=== PATIENT | male | born 1965 | race Caucasian/White ===

== ENCOUNTER → 2021-01-04 14:44 | Outpatient (CLI) | payer OTHER, SELFPAY ==
[2021-01-04 15:12] LABS: Basophils % 0.4 % (0.1-2.0); Eosinophils # 0.3 K/mm3 (0.0-0.4); Eosinophils % 3.9 % (0.1-12.0); Hematocrit 44.8 % (42.0-52.0); Hemoglobin 15.2 g/dL (14.1-18.0); Lymphocytes # 2.8 K/mm3 (0.7-4.5); Lymphocytes % 43.1 % (10-50); Mean Corpuscular HGB Conc 33.9 g/dL (31.8-35.4); Mean Corpuscular Hemoglobin 30.8 pg (27.0-31.2); Mean Corpuscular Volume 90.7 fl (80-94); Mean Platelet Volume 8.1 fl (7.4-10.4); Monocytes # 0.3 K/mm3 (0.1-1.0); Neutrophils # 3.1 K/mm3 (1.8-7.8); Neutrophils % 47.6 % (37.0-80.0); Platelet Count 253 K/mm3 (142-424); Red Blood Count 4.94 M/mm3 (4.60-6.20); Red Cell Distribution Width 13.7 % (11.5-17.5); White Blood Count 6.5 K/mm3 (4.8-10.8)
[2021-01-04 15:14] LABS: Alanine Aminotransferase 34 U/L (12-78); Albumin Level 4.3 g/dl (3.5-5.0); Albumin/Globulin Ratio 1.5 (1.1-1.8); Alkaline Phosphatase 83 U/L (38-126); Anion Gap 12.7 mEq/L (5-15); Aspartate Amino Transferase 24 U/L (17-59); Bilirubin,Total 0.6 mg/dl (0.2-1.3); Blood Urea Nitrogen 16 mg/dl (9-20); Calcium 9.7 mg/dl (8.4-10.2); Carbon Dioxide 26 mmol/L (22.0-30.0); Chloride 103 mmol/L (98-107); Chol/HDL Ratio 6.7 (1-3.5); Cholesterol 235 mg/dl (140-200); Estimated Glomerular Filt Rate 118 ml/min (>60); GFR (African American) 142 ML/MIN (>60); Globulin 2.8 g/dL (1.3-3.2); Glucose 174 mg/dl (74-100); HDL Cholesterol 35 mg/dl (40-60); Potassium 4.7 mmoL/L (3.5-5.1); Sodium 137 mmol/L (136-145); Total Protein,Serum 7.1 g/dl (6.3-8.2); Triglycerides 184 mg/dl (30-150); VLDL Cholesterol 37 mg/dL (0-40)
[2021-01-04 15:26] LABS: Direct LDL Cholesterol 169.17 mg/dL (100-129)
[2021-01-04 15:32] LABS: T4 (Thyroxine) 9.9 ug/dl (5.53-11.0)
[2021-01-04 15:45] LABS: Thyroid Stimulating Hormone 2.14 uIU/mL (0.465-4.68)
[2021-01-04 15:46] LABS: Hemoglobin A1C 8.6 % (4.0-6.0)
== END ==
PROVIDERS: Visit Provider Family Medicine
DX: E78.5 Hyperlipidemia, unspecified (principal); I10 Essential (primary) hypertension; E11.9 Type 2 diabetes mellitus without complications; Z00.00 Encounter for general adult medical examination without abnormal findings
CPT/HCPCS: 80053; 80061; 83036; 84436; 84443; 85025

== ENCOUNTER → 2021-06-27 17:31 | Outpatient (CLI) | payer OTHER, SELFPAY ==
[2021-06-27 18:45] LABS: Basophils % 0.5 % (0.1-2.0); Eosinophils # 0.2 K/mm3 (0.0-0.4); Eosinophils % 3.4 % (0.1-12.0); Hematocrit 43.1 % (42.0-52.0); Hemoglobin 14.8 g/dL (14.1-18.0); Lymphocytes # 2.4 K/mm3 (0.7-4.5); Lymphocytes % 33.8 % (10-50); Mean Corpuscular HGB Conc 34.4 g/dL (31.8-35.4); Mean Corpuscular Hemoglobin 31.1 pg (27.0-31.2); Mean Corpuscular Volume 90.6 fl (80-94); Mean Platelet Volume 7.6 fl (7.4-10.4); Monocytes # 0.4 K/mm3 (0.1-1.0); Monocytes % 5.5 % (1.7-9.3); Neutrophils % 56.7 % (37.0-80.0); Platelet Count 240 K/mm3 (142-424); Red Blood Count 4.75 M/mm3 (4.60-6.20)
[2021-06-27 19:28] LABS: Hemoglobin A1C 7.3 % (4.0-6.0)
[2021-06-27 19:50] LABS: Alanine Aminotransferase 27 U/L (12-78); Albumin Level 4.1 g/dl (3.5-5.0); Albumin/Globulin Ratio 1.5 (1.1-1.8); Alkaline Phosphatase 86 U/L (38-126); Anion Gap 13.4 mEq/L (5-15); Aspartate Amino Transferase 21 U/L (17-59); Bilirubin,Total 0.5 mg/dl (0.2-1.3); Blood Urea Nitrogen 15 mg/dl (9-20); Carbon Dioxide 28 mmol/L (22.0-30.0); Chloride 98 mmol/L (98-107); Estimated Glomerular Filt Rate 117 ml/min (>60); GFR (African American) 142 ML/MIN (>60); Globulin 2.8 g/dL (1.3-3.2); Glucose 179 mg/dl (74-100); Potassium 3.4 mmoL/L (3.5-5.1); Sodium 136 mmol/L (136-145); Total Protein,Serum 6.9 g/dl (6.3-8.2)
== END ==
PROVIDERS: Visit Provider Family Medicine
DX: Z20.822 Contact with and (suspected) exposure to COVID-19 (principal); J02.9 Acute pharyngitis, unspecified; R51.9 Headache, unspecified; E11.9 Type 2 diabetes mellitus without complications; E78.5 Hyperlipidemia, unspecified; I10 Essential (primary) hypertension; Z79.84 Long term (current) use of oral hypoglycemic drugs
CPT/HCPCS: 36415; 80053; 83036; 85025; C9803; U0003; U0005

== ENCOUNTER → 2021-10-28 15:11 | Outpatient (CLI) | payer OTHER, SELFPAY ==
[2021-10-28 15:17] LABS: Basophils # 0.1 K/mm3 (0-0.2); Basophils % 1.5 % (0.1-2.0); Eosinophils # 0.3 K/mm3 (0.0-0.4); Eosinophils % 4.5 % (0.1-12.0); Hematocrit 45.5 % (42.0-52.0); Hemoglobin 14.7 g/dL (14.1-18.0); Lymphocytes # 2.8 K/mm3 (0.7-4.5); Lymphocytes % 41.8 % (10-50); Mean Corpuscular HGB Conc 32.4 g/dL (31.8-35.4); Mean Corpuscular Hemoglobin 31.1 pg (27.0-31.2); Mean Corpuscular Volume 96.1 fl (80-94); Mean Platelet Volume 9.1 fl (7.4-10.4); Monocytes # 0.4 K/mm3 (0.1-1.0); Monocytes % 5.4 % (1.7-9.3); Neutrophils # 3.1 K/mm3 (1.8-7.8); Neutrophils % 46.8 % (37.0-80.0); Platelet Count 277 K/mm3 (142-424); Red Blood Count 4.74 M/mm3 (4.60-6.20); Red Cell Distribution Width 13.8 % (11.5-17.5); White Blood Count 6.6 K/mm3 (4.8-10.8)
[2021-10-28 15:47] LABS: Alanine Aminotransferase 30 U/L (12-78); Albumin Level 4.3 g/dl (3.5-5.0); Albumin/Globulin Ratio 1.7 (1.1-1.8); Alkaline Phosphatase 74 U/L (38-126); Anion Gap 11.2 mEq/L (5-15); Aspartate Amino Transferase 24 U/L (17-59); Bilirubin,Total 0.4 mg/dl (0.2-1.3); Blood Urea Nitrogen 20 mg/dl (9-20); Calcium 9.5 mg/dl (8.4-10.2); Carbon Dioxide 29 mmol/L (22.0-30.0); Chloride 101 mmol/L (98-107); Chol/HDL Ratio 5.5 (1-3.5); Cholesterol 180 mg/dl (140-200); Estimated Glomerular Filt Rate 117 ml/min (>60); GFR (African American) 142 ML/MIN (>60); Globulin 2.5 g/dL (1.3-3.2); Glucose 126 mg/dl (74-100); HDL Cholesterol 33 mg/dl (40-60); Potassium 4.2 mmoL/L (3.5-5.1); Sodium 137 mmol/L (136-145); Total Protein,Serum 6.8 g/dl (6.3-8.2); Triglycerides 235 mg/dl (30-150); VLDL Cholesterol 47 mg/dL (0-40)
[2021-10-28 15:57] LABS: Direct LDL Cholesterol 126.17 mg/dL (100-129)
[2021-10-28 16:17] LABS: Prostate Specific Ag Screen 0.3 ng/ml (0.0-4.0)
[2021-10-28 16:50] LABS: Hemoglobin A1C 7.2 % (4.0-6.0)
== END ==
PROVIDERS: Visit Provider Family Medicine
DX: E11.9 Type 2 diabetes mellitus without complications (principal); Z79.84 Long term (current) use of oral hypoglycemic drugs
CPT/HCPCS: 80053; 80061; 83036; 85025; G0103

== ENCOUNTER → 2022-11-07 14:35 | Outpatient (CLI) | payer OTHER, SELFPAY ==
[2022-11-07 15:05] LABS: Basophils # 0.1 K/mm3 (0-0.2); Eosinophils # 0.2 K/mm3 (0.0-0.4); Eosinophils % 2.9 % (0.1-12.0); Hematocrit 43.9 % (42.0-52.0); Hemoglobin 14.7 g/dL (14.1-18.0); Lymphocytes # 2.6 K/mm3 (0.7-4.5); Lymphocytes % 36.8 % (10-50); Mean Corpuscular HGB Conc 33.5 g/dL (31.8-35.4); Mean Corpuscular Hemoglobin 30.5 pg (27.0-31.2); Mean Corpuscular Volume 91.1 fl (80-94); Mean Platelet Volume 9.1 fl (7.4-10.4); Monocytes # 0.4 K/mm3 (0.1-1.0); Monocytes % 5.4 % (1.7-9.3); Neutrophils # 3.7 K/mm3 (1.8-7.8); Neutrophils % 53.8 % (37.0-80.0); Platelet Count 310 K/mm3 (142-424); Red Blood Count 4.82 M/mm3 (4.60-6.20); Red Cell Distribution Width 13.6 % (11.5-17.5); White Blood Count 6.9 K/mm3 (4.8-10.8)
[2022-11-07 15:19] LABS: Alanine Aminotransferase 32 U/L (12-78); Albumin Level 4.5 g/dl (3.5-5.0); Albumin/Globulin Ratio 1.6 (1.1-1.8); Alkaline Phosphatase 92 U/L (38-126); Anion Gap 13.2 mEq/L (5-15); Aspartate Amino Transferase 28 U/L (17-59); Bilirubin,Total 0.7 mg/dl (0.2-1.3); Blood Urea Nitrogen 17 mg/dl (9-20); Calcium 9.1 mg/dl (8.4-10.2); Carbon Dioxide 25 mmol/L (22.0-30.0); Chloride 100 mmol/L (98-107); Chol/HDL Ratio 8.4 (1-3.5); Cholesterol 269 mg/dl (140-200); Estimated Glomerular Filt Rate 100 ml/min (>60); GFR (African American) 121 ML/MIN (>60); Globulin 2.9 g/dL (1.3-3.2); Glucose 153 mg/dl (74-100); HDL Cholesterol 32 mg/dl (40-60); Potassium 4.2 mmoL/L (3.5-5.1); Sodium 134 mmol/L (136-145); Total Protein,Serum 7.4 g/dl (6.3-8.2); Triglycerides 255 mg/dl (30-150); VLDL Cholesterol 51 mg/dL (0-40)
[2022-11-07 15:20] LABS: Hemoglobin A1C 7.7 % (4.0-6.0)
[2022-11-07 15:29] LABS: Direct LDL Cholesterol 177.16 mg/dL (100-129)
[2022-11-07 15:49] LABS: Prostate Specific Ag Screen 3.1 ng/ml (0.0-4.0)
== END ==
LOC: LAB.DROPOF 14:36
PROVIDERS: PCP Family Medicine; Visit Provider Family Medicine
DX: E11.9 Type 2 diabetes mellitus without complications (principal); E78.5 Hyperlipidemia, unspecified; Z12.5 Encounter for screening for malignant neoplasm of prostate; Z79.84 Long term (current) use of oral hypoglycemic drugs
CPT/HCPCS: 80053; 80061; 83036; 85025; G0103

== ENCOUNTER 2023-10-21 11:01 | Outpatient (CLI) | payer OTHER, SELFPAY ==
--- NOTE | 2023-10-21 11:19 | XR_ITS ---
FINAL REPORT CLINICAL HISTORY: pleuritic chest pain, cough COMPARISON: None FINDINGS: Two views of the chest were obtained. The heart size and pulmonary vascularity are within normal limits. The mediastinum is normal. There is bronchial wall thickening consistent with bronchitis. There is no pneumothorax. Moderate thoracic degenerative changes present. IMPRESSION: Bronchial wall thickening consistent with bronchitis. Reviewed, Interpreted and Dictated by Maury Stout III, MD Transcribed by Joselin Rogers Authenticated and [facility]
--- NOTE | 2023-10-21 12:25 | ECG_ITS ---
APPROVED REPORT Exam: Resting ECG HR:65 bpm ECG Measurements Heart Rate 65 AXES DC 150 P 47 QRSd 97 QRS 59 QT 380 T 8 QTc 392 Conclusion SINUS RHYTHM Normal ECG (Inferior Q waves are noted but do not reach a level of significance) UNCONFIRMED REPORT Electronically signed by : Gama Sy MD 10/21/2023 12:39:33
[2023-10-21 17:59] LABS: Influenza A, PCR Not Detected (NotDetected); Influenza B, PCR Not Detected (NotDetected)
[2023-10-21 19:49] LABS: Coronavirus 19, PCR Detected (NotDetected)
== END 2023-10-21 23:59 ==
PROVIDERS: PCP Family Medicine; Visit Provider Nurse Practitioner
DX: R07.81 Pleurodynia (principal); J06.9 Acute upper respiratory infection, unspecified; U07.1 COVID-19
CPT/HCPCS: 71046; 87636; 93005

== ENCOUNTER 2023-11-05 22:16 | Outpatient (CLI) | payer OTHER, SELFPAY ==
[2023-11-05 19:27] LABS: Basophils # 0.1 K/mm3 (0-0.2); Basophils % 0.7 % (0.1-2.0); Eosinophils # 0.2 K/mm3 (0.0-0.4); Eosinophils % 2.5 % (0.1-12.0); Hematocrit 45.3 % (42.0-52.0); Hemoglobin 15.1 g/dL (14.1-18.0); Lymphocytes # 2.8 K/mm3 (0.7-4.5); Mean Corpuscular HGB Conc 33.3 g/dL (31.8-35.4); Mean Corpuscular Hemoglobin 30.6 pg (27.0-31.2); Mean Corpuscular Volume 91.7 fl (80-94); Mean Platelet Volume 8.8 fl (7.4-10.4); Monocytes # 0.4 K/mm3 (0.1-1.0); Monocytes % 5.9 % (1.7-9.3); Neutrophils # 3.5 K/mm3 (1.8-7.8); Platelet Count 231 K/mm3 (142-424); Red Blood Count 4.94 M/mm3 (4.60-6.20); Red Cell Distribution Width 13.5 % (11.5-17.5); White Blood Count 6.9 K/mm3 (4.8-10.8)
[2023-11-05 19:52] LABS: Chloride 102 mmol/L (98-107); Potassium 4.5 mmoL/L (3.5-5.1); Sodium 136 mmol/L (136-145)
[2023-11-05 19:54] LABS: Alanine Aminotransferase 37 U/L (12-78); Aspartate Amino Transferase 28 U/L (17-59); Blood Urea Nitrogen 15 mg/dl (9-20); Estimated Glomerular Filt Rate 116 ml/min (>60); GFR (African American) 141 ML/MIN (>60)
[2023-11-05 19:55] LABS: Albumin Level 4.1 g/dl (3.5-5.0); Albumin/Globulin Ratio 1.4 (1.1-1.8); Alkaline Phosphatase 86 U/L (38-126); Anion Gap 10.5 mEq/L (5-15); Bilirubin,Total 0.6 mg/dl (0.2-1.3); Calcium 9.5 mg/dl (8.4-10.2); Carbon Dioxide 28 mmol/L (22.0-30.0); Chol/HDL Ratio 4.9 (1-3.5); Cholesterol 173 mg/dl (140-200); Globulin 2.9 g/dL (1.3-3.2); Glucose 148 mg/dl (74-100); HDL Cholesterol 35 mg/dl (40-60); Triglycerides 156 mg/dl (30-150); VLDL Cholesterol 31 mg/dL (0-40)
[2023-11-05 20:08] LABS: Direct LDL Cholesterol 109.48 mg/dL (100-129)
[2023-11-05 20:16] LABS: Hemoglobin A1C 8.1 % (4.0-6.0)
== END 2023-11-05 23:59 ==
LOC: LAB.DROPOF 22:18
PROVIDERS: PCP Family Medicine; Visit Provider Family Medicine
DX: E11.9 Type 2 diabetes mellitus without complications (principal); E78.5 Hyperlipidemia, unspecified; Z79.84 Long term (current) use of oral hypoglycemic drugs
CPT/HCPCS: 80053; 80061; 83036; 85025

== ENCOUNTER 2024-06-28 07:08 | Day surgery (SDC) | payer OTHER, SELFPAY ==
[2024-06-28] MEDS: LACTATED RINGERS 1000ML 1,000 ML 25 ML IV (07:22)
[2024-06-28 07:25] VITALS: BP 114/59; PULSE 61; RESP 18; TEMP 36.4; O2SAT 98; BMI 29.8
[2024-06-28 07:38] LABS: POC Glucose,Bedside 147 (70-110)
--- NOTE | 2024-06-28 07:54 | EXP.ANES.CKL ---
[facility] Disclaimer: The information contained in this section may have been updated after the patient was seen, as this information can be updated by other users. Medical History Pleuritic chest pain Hyperlipidemia Diabetes Surgical History History of appendectomy Family History Other Family history of myocardial infarction Social History Smoking Status: Current every day smoker tobacco type: cigarettes packs per day: 1 alcohol intake: former substance use type: denies use current occupational status: employed Travel in the last 8 weeks: None [facility] Anesthesia Checklist Patient Identification Patient Identification: Arm Band and Verbal (Name & ) Structural Data Admitted From: Home Planned Operative Procedure/s: Colonoscopy Consent for Planned Operative Procedure(s) Verified: Yes Verified Documents: Surgical Consent and History and Physical NPO Status Verified Time NPO: 00:00 Additional verifications Anesthesia Reactions: No Airway Assessment Mallampati Score:: Class III C-Spine Mobility Assessed: Yes TMJ Mobility Assessed: Yes Dentition: Poor Dentition Neurological Assessment Level of Consciousness: Awake Hx Seizures: No Numbness or tingling in extremities: No Anesthesia Plan Anesthesia Risk discussed: Yes Anesthesia Plan: Verified ASA Class: II Anesthesia Type: MAC
[2024-06-28 08:03] VITALS: O2SAT 98
--- NOTE | 2024-06-28 08:31 | HMH.SCOPE ---
Procedure: Date: 06/28/24 Patient Date of :: 1965 Procedure Performed:: Colonoscopy with polypectomy Indications:: Screening Performing Provider:: Eleuterio Kumar MD Referring Provider:: . Sedation:: Monitored anesthesia care Procedure:: After informed consent was obtained the patient was taken to the endoscopy suite. Sedation ensued after the patient was transferred to the left lateral decubitus position. Pulse, blood pressure, and oxygen saturation were monitored throughout the procedure. Digital rectal exam revealed no significant abnormality. The colonoscope was placed in position. The entire colon was evaluated. The colonoscope was carefully removed and the patient was transferred to recovery in stable condition. Please see findings and specimens below for detail. Findings:: Bowel preparation relatively fair Moderate spasticity Moderate tortuosity Mild prostatic enlargement Early/developing sigmoid diverticulosis Hemorrhoidal cushions Polyp (see specimens) Specimens:: Lobulated sessile right colon polyp (cold snare) Recommendations:: Timing of repeat colonoscopy is pending pathology will likely be around 2-3 years secondary to size/nature of polyp, tortuosity, and spasticity. Complications:: No immediate Estimated blood obtained (mL): 1 Colonoscopy Component Colonoscopy Component Was a colonoscopy performed during today's procedure?: Yes Recommended follow up colonoscopy of at least 10 years?: No If no, follow up colonoscopy recommended in ___ years?: (See above) Reason for not recommending >/= 10 yr follow-up interval?: (See above)
[2024-06-28 08:33] VITALS: BP 102/74; PULSE 63; RESP 14; TEMP 36.4; O2SAT 94
[2024-06-28 08:47] VITALS: BP 105/58; PULSE 57; RESP 16; O2SAT 98
[2024-06-28 09:03] VITALS: BP 111/65; PULSE 58; RESP 18; O2SAT 96
== END 2024-06-28 09:03 | disposition home or self-care (01) ==
PROVIDERS: PCP Family Medicine; Visit Provider Surgery
PROC: 0DJD8ZZ Inspection of Lower Intestinal Tract, Via Natural or Artificial Opening Endoscopic (ICD-10-PCS; CPT 45385; principal; 2024-06-28 08:30)
DX: Z12.11 Encounter for screening for malignant neoplasm of colon (principal); K57.30 Diverticulosis of large intestine without perforation or abscess without bleeding; K64.9 Unspecified hemorrhoids; D12.2 Benign neoplasm of ascending colon
CPT/HCPCS: 45385; 82962; J2704; J7120

== ENCOUNTER 2024-12-07 09:24 | Outpatient (CLI) | payer OTHER, SELFPAY ==
[2024-12-07 18:38] LABS: Basophils % 0.6 % (0.1-2.0); Eosinophils # 0.2 K/mm3 (0.0-0.4); Eosinophils % 3.4 % (0.1-12.0); Hematocrit 41.8 % (42.0-52.0); Lymphocytes # 2.4 K/mm3 (0.7-4.5); Lymphocytes % 38.9 % (10-50); Mean Corpuscular HGB Conc 33.5 g/dL (31.8-35.4); Mean Corpuscular Hemoglobin 29.9 pg (27.0-31.2); Mean Corpuscular Volume 89.1 fl (80-94); Mean Platelet Volume 10.2 fl (7.4-10.4); Monocytes # 0.4 K/mm3 (0.1-1.0); Neutrophils # 3.1 K/mm3 (1.8-7.8); Neutrophils % 50.9 % (37.0-80.0); Platelet Count 224 K/mm3 (142-424); Red Blood Count 4.69 M/mm3 (4.60-6.20); Red Cell Distribution Width 13.2 % (11.5-17.5); White Blood Count 6.2 K/mm3 (4.8-10.8)
[2024-12-07 18:49] LABS: Creatinine,Urine Random 82 mg/dL (Not Estab.)
[2024-12-07 20:02] LABS: Alanine Aminotransferase 21 U/L (12-78); Albumin Level 4.4 g/dl (3.5-5.0); Anion Gap 11.2 mEq/L (5-15); Aspartate Amino Transferase 19 U/L (17-59); Bilirubin,Total 0.7 mg/dl (0.2-1.3); Blood Urea Nitrogen 15 mg/dl (9-20); Calcium 9.4 mg/dl (8.4-10.2); Carbon Dioxide 25 mmol/L (22.0-30.0); Chloride 105 mmol/L (98-107); Estimated Glomerular Filt Rate 99 ml/min (>60); GFR (African American) 120 ML/MIN (>60); Globulin 2.6 g/dL (1.3-3.2); Glucose 136 mg/dl (74-100); Potassium 4.2 mmoL/L (3.5-5.1); Sodium 137 mmol/L (136-145)
[2024-12-07 20:03] LABS: Albumin/Globulin Ratio 1.7 (1.1-1.8); Alkaline Phosphatase 82 U/L (38-126); Chol/HDL Ratio 4.8 (1-3.5); Cholesterol 130 mg/dl (140-200); HDL Cholesterol 27 mg/dl (40-60); Triglycerides 84 mg/dl (30-150); VLDL Cholesterol 17 mg/dL (0-40)
[2024-12-07 20:13] LABS: Direct LDL Cholesterol 74.09 mg/dL (100-129)
[2024-12-07 21:17] LABS: Hepatitis C Ab Qual. W/ RFX NEGATIVE (Negative)
[2024-12-07 22:11] LABS: HIV Combo POSITIVE (Negative)
[2024-12-07 22:12] LABS: HIV Combo Retest POSITIVE (Negative)
[2024-12-09 08:18] LABS: HIV Screen 4th Generation wRfx Non Reactive (Non Reactive)
== END 2024-12-07 23:59 | disposition home or self-care (01) ==
LOC: LAB.DROPOF 12-08 15:20
PROVIDERS: PCP Family Medicine; Visit Provider Family Medicine
DX: E11.9 Type 2 diabetes mellitus without complications (principal); E78.5 Hyperlipidemia, unspecified
CPT/HCPCS: 80053; 80061; 82043; 82570; 85025; 86703; 86803; 87389; G0432

== ENCOUNTER 2025-03-28 09:12 | Outpatient (CLI) | payer OTHER, SELFPAY ==
[2025-03-28 19:19] LABS: Hemoglobin A1C 7.6 % (4.0-6.0)
[2025-03-28 19:59] LABS: Alanine Aminotransferase 20 U/L (12-78); Albumin Level 4.2 g/dl (3.5-5.0); Albumin/Globulin Ratio 1.3 (1.1-1.8); Alkaline Phosphatase 93 U/L (38-126); Anion Gap 8.5 mEq/L (5-15); Aspartate Amino Transferase 20 U/L (17-59); Bilirubin,Total 0.7 mg/dl (0.2-1.3); Blood Urea Nitrogen 23 mg/dl (9-20); Calcium 10.2 mg/dl (8.4-10.2); Carbon Dioxide 30 mmol/L (22.0-30.0); Chloride 101 mmol/L (98-107); Estimated Glomerular Filt Rate 62 ml/min (>60); GFR (African American) 75 ML/MIN (>60); Globulin 3.2 g/dL (1.3-3.2); Glucose 161 mg/dl (74-100); Potassium 4.5 mmoL/L (3.5-5.1); Sodium 135 mmol/L (136-145); Total Protein,Serum 7.4 g/dl (6.3-8.2)
[2025-03-28 20:31] LABS: Prostate Specific Ag Screen 0.3 ng/ml (0.0-4.0); Thyroid Stimulating Hormone 1.93 uIU/mL (0.465-4.68)
--- OUTSIDE RECORDS SUMMARY | 2025-03-29 09:31 | XMS_ITS | Clinical Summary ---
Author Organization [facility] Address [address] [place] [address] Phone Care Team Providers Care Travel Coordinator Name Role Phone Spencer Galindo MD, [place] Primary Care Provider + Allergies No known active allergies Medications omeprazole (PRILOSEC) 20 mg Take 20 mg by mouth daily. Active losartan-hydroc hlorothiazide (HYZAAR) 100-25 mg per tablet Take 1 Tab by mouth daily. Active simvastatin (ZOCOR) 40 mg Take 40 mg by mouth daily. Active metoprolol (LOPRESSOR) 100 mg tablet Take 100 mg by mouth daily. Active aspirin 81 mg tablet Take 81 mg by mouth daily. Active amLODIPine (NORVASC) 10 mg tablet Take by mouth daily. Active cloNIDine (CATAPRES) 0.1 mg tablet Take 0.1 mg by mouth daily. Active methylPREDNISol one (MEDROL DOSPACK) 4 mg Oral Tablets, Dose PackIndications :Contusion of left lower extremity, initial encounter follow package directions 1 Each 1 Active Additional Information Patient not taking.Reason: Therapy Completed, Reported on 05/03/2022 atorvastatin (LIPITOR) 40 mg Oral Tablet Active pantoprazole (PROTONIX) 40 mg Oral Tablet, Delayed Release (E.C.) 40 mg 2 times daily. 1 Active metFORMIN (GLUCOPHAGE) 500 mg Oral Tablet Take by mouth 2 times daily. Active Active Problems Problem Noted Date Diagnosed Date Contusion of left leg 04/25/2021 Surgical History Surgery Date Site/Laterality Comments APPENDECTOMY Medical History Medical History Date Comments Hypertension Cholesterol serum decreased GERD (gastroesophageal reflux disease) Diabetes mellitus (HCC) Family History Medical History Relation Name Comments Heart Disease Brother 1 High Cholesterol Brother 1 Hypertension Brother 1 Anemia Father Heart Attack Father Heart Surgery Father High Cholesterol Father Hypertension Father Relation Name Status Comments Brother 1 Alive Brother 2 Alive Brother 3 Alive Father Alive Mother Social History Tobacco Use Types Packs/Day Years Used Date Smoking Tobacco: Every Day Cigarettes Alcohol Use Standard Drinks/Week Comments Yes 35 (1 standard drink = 0.6 oz pu re alcohol) 6 beers/day Sex and Gender Information Value Date Recorded Sex Assigned at Not on file Legal Sex Male 3:33 AM EDT Gender Identity Not on file Sexual Orientation Not on file Obstetrics History Last Filed Vital Signs Vital Sign Reading Time Taken Comments Blood Pressure 121/60 05/03/2022 7:38 PM EDT Pulse 81 05/03/2022 7:44 PM EDT Temperature 37.6 C (99.7 F) 05/03/2022 6:05 PM EDT Respiratory Rate 15 05/03/2022 7:44 PM EDT Oxygen Saturation 99% 05/03/2022 7:44 PM EDT Inhaled Oxygen Concentration - - Weight 91.4 kg (201 lb 6.4 oz) 05/03/2022 4:38 P M EDT Height 167.6 cm (5' 6 ) 05/03/2022 4:38 PM EDT Body Mass Index 32.51 05/03/2022 4:38 PM EDT Plan of Treatment Health Maintenance Due Date Last Done Comments Annual Wellness Exam 1969 Hepatitis B Vaccine (1 of 3 - 19+ 3-dose series) 1985 Pneumococcal Vaccine 50+ (1 of 2 - PCV) 1985 DTaP/TDaP/Td (1 - Tdap) 05/24/2009 05/23/20 09, 12/20/1996 Cologuard 2011 Colon Cancer Screening 2011 Colonoscopy 2011 FIT 2011 Sigmoidoscopy 2011 Virtual Colonography 2011 Zoster (1 of 2) 02/29/2016 COVID-19 Vaccine (1 - 2024-2 5 season) 2024 Influenza Vaccine (Season Ended) 2025 Meningococcal B Vaccine Aged Out No l onger eligible based on patient's age to complete this topic Insurance CHOICE PLUS CHOICE PLUS CHOICE PLUS Care Teams Travel Coordinator Relationship Specialty Start Date End Date Cesario Palmer MD [address] [place] [phone] PCP - General Family Medicine 06/16/12
== END 2025-03-28 23:59 | disposition home or self-care (01) ==
LOC: LAB.DROPOF 03-29 09:28
PROVIDERS: PCP Nurse Practitioner; Visit Provider Nurse Practitioner
DX: E78.5 Hyperlipidemia, unspecified (principal); E11.9 Type 2 diabetes mellitus without complications; I10 Essential (primary) hypertension; Z12.5 Encounter for screening for malignant neoplasm of prostate
CPT/HCPCS: 80053; 83036; 84443; G0103

== ENCOUNTER 2025-07-28 12:29 | Outpatient (CLI) | payer OTHER, SELFPAY ==
--- OUTSIDE RECORDS SUMMARY | 2025-07-28 12:33 | XMS_ITS | Clinical Summary ---
Author Organization [facility] Address [address] [place] [address] Phone Care Team Providers Care Resume Specialist Name Role Phone Spencer Galindo MD, [place] Primary Care Provider + Allergies No known [...] on file Sexual Orientation Not on file Last Filed Vital Signs Vital Sign Reading [...] of 3 - 19+ 3-dose series) 1985 DTaP/TDaP/Td (1 - Tdap) 05/24/2009 05/23/20 09, 12/20/1996 Cologuard 2011 Colon Cancer Screening 2011 Colonoscopy 2011 FIT 2011 Sigmoidoscopy 2011 Virtual Colonography 2011 Pneumococcal Vaccine 50+ (1 of 1 - PCV) 02/29/2016 Zoster (1 of 2) 02/29/2016 COVID-19 Vaccine (2024-2 6 season) 2025 Influenza Vaccine (#1) 2025 Meningococcal B Vaccine Aged Out No l onger eligible based on patient's age to complete this topic Insurance CHOICE PLUS CHOICE PLUS CHOICE PLUS Care Teams Resume Specialist Relationship Specialty Start Date End Date Cesario Palmer MD [address] [place] [phone] PCP - General Family Medicine 06/16/12
[2025-07-28] MEDS: ALBUTEROL 0.083% 2.5 MG/3 ML NEB IH (13:04)
--- NOTE | 2025-07-28 13:04 | PC.NURSE ---
Complete PFT accomplished by Pt. Albuterol 0.083% given via HHN, per written protocol, Pt tolerated tx well.
--- NOTE | 2025-07-28 14:30 | CT_ITS ---
FINAL REPORT CLINICAL HISTORY: lung cancer screening CURRENT SMOKER 1PPD X39 YEARS FINDINGS: CT CHEST LOW DOSE SCREENING HISTORY: Screening exam for lung cancer. Current smoker, 39 pack year smoking history DOSE: CTDIvol: 2.90 mGy, DLP: 101.60 mGy*cm COMPARISON: None . TECHNIQUE: Axial CT without IV contrast administration using low dose protocol. This study was performed with techniques to keep radiation doses as low as reasonably achievable, (ALARA). Individualized dose reduction techniques using automated exposure control or adjustment of mA and/or kV according to the patient''s size were employed. FINDINGS: No acute lung disease is present . There is evidence of old calcified granulomatous disease. No pulmonary lesions are seen suspicious for neoplasm. No pleural or pericardial effusion is seen . No adenopathy or mass lesion is present . IMPRESSION: 1. No evidence of lung cancer LUNG RADS CATEGORY 1 RECOMMENDATION: 12 month LDCT follow up Reviewed, Interpreted and Dictated by Nani Najera MD Transcribed by Kaylee Julio Authenticated and . [facility]
--- NOTE | 2025-07-28 15:15 | CA_ITS ---
APPROVED REPORT EXAM: Comprehensive 2D, Doppler, and color-flow Echocardiogram Supervisor Machine Setter: PEYMAN Paz, RVS Ht: 5 ft 6 in Wt: 196lbs BSA: 1.98 BP: 132/80 mmHg Indications: PAREKH, Murmur, HTN, Smoker 2D Dimensions IVSd 1.06 cm LVEF (Visual) 67.50 % PWd 0.95 cm LA Volume 79.10 mL LVDd 4.12 cm LA Volume Index 39.00 mL/m2 (M/F) 16-34 LVDs 2.59 cm Left Atrium 3.75 cm M-Mode Dimensions LA Diam 3.84 cm (1.9-4.0) EPSs 0.29 cm TAPSE 2.48 (<1.7) LV Diastology E Decel Time 240 (160-240 msec) E/A Ratio 0.95 MED A' 11.20 cm/s LAT A' 11.50 cm/s Aortic Valve RIGOBERTO Index 1.21 cm2/m2 AoV Peak Bertrand. 139.0 (50-130 cm/s) AO Peak GR. 7.70 mmHg AO Mean GR. 3.90 (<5 mmHg) AO VTI 31.2 (18-25 cm) RIGOBERTO (VTI) 2.46 (2.5-4.5 cm2) Mitral Valve MV A Velocity 109.0 (40-130 cm/s) E/A Ratio 0.95 Left Ventricle The left ventricle is normal size. Left ventricular systolic function is normal. The left ventricular ejection fraction is within the normal range. There is increased left ventricular wall thickness. There is normal LV segmental wall motion. The left ventricular diastolic function is normal. LVEF is 55% Right Ventricle The right ventricle is normal size. The right ventricular systolic function is normal. Atria The left atrium size is normal. The right atrium size is normal. There is no color Doppler evidence of interatrial shunt. Aortic Valve The aortic valve is mildly thickened, possibly bicuspid aortic valve. There is no hemodynamically significant aortic valvular stenosis. Trace aortic regurgitation is present. Mitral Valve The mitral valve is normal in structure. No evidence of mitral valve stenosis. Trace mitral regurgitation is present. Tricuspid Valve The tricuspid valve leaflets are thin and pliable. Mild tricuspid regurgitation. RVSP is normal. Pulmonic Valve The pulmonary valve is grossly normal in structure. Trace pulmonic valve regurgitation is present. Great Vessels The aortic root is normal in size. IVC is normal in size and collapses >50% with inspiration. Pericardium There is no pericardial effusion. Other Information Study Quality: Fair Conclusion Normal biventricular systolic function. The aortic valve is mildly thickened, possibly bicuspid aortic valve. No significant AI or . Mild TR. Electronically signed by : Breanne Cates MD 07/31/2025 02:21:40
== END 2025-07-28 23:59 | disposition home or self-care (01) ==
LOC: RT 12:30
PROVIDERS: PCP Family Medicine; Visit Provider Nurse Practitioner Family
DX: I07.1 Rheumatic tricuspid insufficiency (principal); I10 Essential (primary) hypertension; R93.1 Abnormal findings on diagnostic imaging of heart and coronary circulation; Z12.2 Encounter for screening for malignant neoplasm of respiratory organs; F17.210 Nicotine dependence, cigarettes, uncomplicated
CPT/HCPCS: 71271; 93306; 94010; 94727; 94729

== ENCOUNTER 2025-08-09 09:26 | Outpatient (CLI) | payer OTHER, SELFPAY ==
--- OUTSIDE RECORDS SUMMARY | 2025-08-09 09:58 | XMS_ITS | Clinical Summary ---
Author Organization [facility] Address [address] [place] [address] Phone Care Team Providers Care Magazine Publisher Name Role Phone Spencer Galindo MD, [place] Primary Care Provider + Allergies No known [...] PLUS CHOICE PLUS CHOICE PLUS Care Teams Magazine Publisher Relationship Specialty Start Date End Date Cesario Palmer MD [address] [place] [phone] PCP - General Family Medicine 06/16/12
--- NOTE | 2025-08-09 10:00 | US_ITS ---
FINAL REPORT CLINICAL HISTORY: R25.2 - Cramp and spasm-- hypertension FINDINGS: RENAL ULTRASOUND Ultrasound images of the kidneys were obtained. The right kidney measures 10.6 cm in length. It is normal echogenicity. There is no hydronephrosis. The left kidney measures 12.5 cm in length. It is normal echogenicity. There is no hydronephrosis. IMPRESSION: Normal renal ultrasound. Reviewed, Interpreted and Dictated by Flakito Tanner MD Transcribed by Holly Hunt Authenticated and [facility]
--- NOTE | 2025-08-09 10:30 | US_ITS ---
FINAL REPORT CLINICAL HISTORY: claudication, leg cramps, DM, Smoker, leg weakness FINDINGS: ANKLE-BRACHIAL PRESSURE INDICES Pressure indices are as follows: RIGHT LOWER EXTREMITY: Ankle-brachial pressure index: 0.96 Comments: Lower limits of normal LEFT LOWER EXTREMITY: Ankle-brachial pressure index: 1.07 Comments: Lower limits of normal IMPRESSION: No evidence of significant obstructive peripheral vascular disease of the lower extremities Reviewed, Interpreted and Dictated by Flakito Tanner MD Transcribed by Milly Castellon Authenticated and [facility]
--- NOTE | 2025-08-09 11:00 | CA_ITS ---
FINAL REPORT CLINICAL HISTORY: HTN FINDINGS: The peak systolic velocity of the right common carotid artery is 97 cm/s. The peak systolic velocity of the right internal carotid artery is 94 cm/s and end diastolic velocity 29 cm/s. The ICA/CCA ratio is 1.3. A mild to moderate amount of plaque is present. The right external carotid artery is patent. The right vertebral artery is patent with antegrade flow. The peak systolic velocity of the left common carotid artery is 77 cm/s. The peak systolic velocity of the left internal carotid artery is 90 cm/s and end diastolic velocity 20 cm/s. The ICA/CCA ratio is 1.4. A mild to moderate amount of plaque is present. The left external carotid artery is patent. The left vertebral artery is patent with antegrade flow. IMPRESSION: Less than 50% bilateral carotid stenoses. Bilateral patent vertebral arteries with antegrade flow. If indicated, CTA or MRA could further evaluate. Reviewed, Interpreted and Dictated by Flakito Tanner MD Transcribed by Holly Hunt Authenticated and [facility]
== END 2025-08-09 23:59 | disposition home or self-care (01) ==
LOC: RAD 09:27
PROVIDERS: PCP Family Medicine; Visit Provider Physician Assistant
DX: I65.23 Occlusion and stenosis of bilateral carotid arteries (principal); I73.9 Peripheral vascular disease, unspecified; E11.9 Type 2 diabetes mellitus without complications; F17.200 Nicotine dependence, unspecified, uncomplicated; R29.898 Other symptoms and signs involving the musculoskeletal system; R25.2 Cramp and spasm; R42 Dizziness and giddiness; R06.02 Shortness of breath; I10 Essential (primary) hypertension
CPT/HCPCS: 76770; 93880; 93923

== ENCOUNTER 2025-08-22 06:39 | Outpatient (CLI) | payer OTHER, SELFPAY ==
--- NOTE | 2025-08-22 | CA_ITS ---
APPROVED REPORT Exam: Exercise Treadmill Technologist: Renetta Verma Ht: 5 ft 6 in Wt: 194 lbs BSA: 1.97 m2 HR: 60 bpm BP: 147/76 mmHg Rhythm: Sinus rhythm Indications: Hypertension, family history Medical History Cardiac Risk Factors: HTN, Hyperlipidemia, Diabetes (non-insulin), FHX of CAD, Smoking Stress Test Details HR Resting HR: 60 bpm Max Heart Rate (APMHR): 161.540633 bpm Max HR Achieved: 132 bpm Target HR (85% APMHR): 136.353373 bpm % of APMHR: 81.99 Recovery HR: 111 bpm BP Resting BP: 147.0/76.0 mmHg Max BP: 190.0/75.0 mmHg Recovery BP: 190.0/75.0 mmHg ECG Resting ECG: Sinus rhythm Clinical Exercise duration: 9 min Exercise capacity: 10.3 METs Stress ECG Conclusion During daniel protocol pt requested to stop at 9 minutes due to hip pain. Pt experinced mild chest tightness and hip pain. Symptoms resolved prior to discharge. No arrhythmias noted. 0.5-1mm upsloping ST segment depression multiple leads. Abnormal EKC changes. 81% PM 10.3 METS Electronically signed by : Breanne Cates MD 08/26/2025 02:15:09
--- OUTSIDE RECORDS SUMMARY | 2025-08-22 06:42 | XMS_ITS | Clinical Summary ---
Author Organization [facility] Address [address] [place] [address] Phone Care Team Providers Care Customer Operations Specialist Name Role Phone Spencer Galindo MD, [place] Primary Care Provider + Allergies No known [...] PLUS CHOICE PLUS CHOICE PLUS Care Teams Customer Operations Specialist Relationship Specialty Start Date End Date Cesario Palmer MD [address] [place] [phone] PCP - General Family Medicine 06/16/12
--- NOTE | 2025-08-22 07:00 | NM_ITS ---
APPROVED REPORT Exam: Nuclear Stress Test Indication: Chest pain, SOB, HTN, DM, Tobacco use, Family history Patient Location: Outpatient Stress Tech: Renetta RICHARDSON Tech:Rosa Antoine, ARRT, RT (R)(N) Ht: 5 ft 6 in Wt: 186 lbs HR: 58 bpm BP: 147/76 mmHg BSA: 1.94 m2 TID: 1.29 BMI: 30.0 History: Chest pain, SOB, HTN, DM, Tobacco use, Family history Procedure: Patient exercised on Jeffrey protocol 9:00 minutes and sec, resting heart rate 58 bpm, resting blood pressure 147/76 mmHg, with exercise maximum heart rate achived was 132 bpm which is 81 % of the maximum predicted heart rate and blood pressure was 190/75 mmHg. Test was stopped due to SOB. Patient denied any complaint of chest pain. Patient has average exercise capacity, achieved 10.3 METs of workload on treadmill, the blood pressure response to exercise was normal. Cardiac Stress and Resting SPECT Images: Cardiac Stress and Resting SPECT images were obtained using technetium 99m Myoview 32.2 mCi stress and 10.60 mCi at rest. Resting and stress imaging in supine and prone positions demonstrate no evidence of fixed or reversible perfusion defects. There is increase in transient ischemic dilatation ratio (TID 1.29), which may be suggestive of possible multivessel disease or balanced ischemia. Gated imaging demonstrates normal global LV systolic function. LVEF is calculated 59%. Conclusion: No evidence of fixed or reversible perfusion defects. There is increase in transient ischemic dilatation ratio (TID 1.29), which may be suggestive of possible multivessel disease or balanced ischemia. Gated imaging demonstrates normal global LV systolic function. LVEF is calculated 59%. Electronically signed by : Breanne Cates MD 08/22/2025 13:08:54
[2025-08-22 08:34] VITALS: BP 147/76; BP 190/75; PULSE 60; RESP 14
[2025-08-22] MEDS: SODIUM CHLORIDE 0.9% 10ML SYR (RAD ONLY) 10 ML IV ×2 (08:51)
[2025-08-22] MEDS: ISOTOPE MYOVIEW (PER STUDY) 1 DOSE IV (08:51)
== END 2025-08-22 23:59 | disposition home or self-care (01) ==
PROVIDERS: PCP Family Medicine; Visit Provider Physician Assistant
DX: R94.39 Abnormal result of other cardiovascular function study (principal); R94.31 Abnormal electrocardiogram [ECG] [EKG]; I10 Essential (primary) hypertension; E78.00 Pure hypercholesterolemia, unspecified; M25.559 Pain in unspecified hip; R07.9 Chest pain, unspecified; R42 Dizziness and giddiness; Z72.0 Tobacco use; Z82.49 Family history of ischemic heart disease and other diseases of the circulatory system
CPT/HCPCS: 78452; 93017; 93018; A9502

== ENCOUNTER 2025-09-06 08:11 | Emergency (ER) | payer OTHER, SELFPAY ==
--- NOTE | 2025-09-06 08:17 | ECG_ITS ---
APPROVED REPORT Exam: Resting ECG HR:61 bpm ECG Measurements Heart Rate 61 AXES NH 180 P 67 QRSd 98 QRS 77 QT 388 T 50 QTc 392 Conclusion SINUS RHYTHM NORMAL ECG Electronically signed by : BRANDON GARCIA, 09/07/2025 14:08:31
--- NOTE | 2025-09-06 08:19 | PC.NURSE ---
FSBS 137 at this time
[2025-09-06 08:22] VITALS: BP 177/98; PULSE 57; RESP 15; TEMP 36.7; O2SAT 100; BMI 30.2
--- OUTSIDE RECORDS SUMMARY | 2025-09-06 08:27 | XMS_ITS | Clinical Summary ---
Author Organization [facility] Address [address] [place] [address] Phone Care Team Providers Care Cylinder Die Machine Helper Name Role Phone Spencer Galindo MD, [place] Primary Care Provider + Allergies No known [...] PLUS CHOICE PLUS CHOICE PLUS Care Teams Cylinder Die Machine Helper Relationship Specialty Start Date End Date Cesario Palmer MD [address] [place] [phone] PCP - General Family Medicine 06/16/12
--- NOTE | 2025-09-06 08:35 | CT_ITS ---
FINAL REPORT TECHNIQUE: Thin section axial images are obtained through the brain after intravenous contrast injection. Multiplanar reconstructions were obtained from the axial data. Exam was performed using dose reduction techniques such as automated exposure control, adjustment of the mA and kV according to patient size, and use of iterative reconstruction technique. CLINICAL HISTORY: TIA w/u COMPARISON: none FINDINGS: The intracerebral portions of the carotid arteries are patent. The anterior and middle cerebral arteries are patent without stenosis or occlusion. The posterior cerebral arteries are patent. The basilar artery is patent. The vertebral arteries are patent. There is no significant stenosis, aneurysm, or AVM. IMPRESSION: Unremarkable CT angiogram of the intracerebral vasculature. Reviewed, Interpreted and Dictated by Judy Sterling MD Transcribed by Milly Castellon Authenticated and [facility]
--- NOTE | 2025-09-06 08:35 | CT_ITS ---
FINAL REPORT TECHNIQUE: Axial imaging of the chest is obtained after the administration of contrast. 3-D MIP reformatted images were also obtained and reviewed per PE protocol. CLINICAL HISTORY: shortness of breath COMPARISON: 07/28/2025 CT low-dose FINDINGS: The pulmonary arteries are well filled. There is no evidence of pulmonary embolus. There is no aortic dissection. Heart size is normal. There is no mediastinal, hilar, or axillary lymphadenopathy. There are no suspicious pulmonary nodules. No consolidations. Small filling defect in the right mainstem bronchus is favored to be related to secretions.. There is no pleural or pericardial effusion. Limited evaluation of the upper abdomen is without acute abnormality. Small left adrenal nodule is unchanged. No acute osseous abnormality. IMPRESSION: No evidence of pulmonary embolism or aortic dissection. Reviewed, Interpreted and Dictated by Judy Sterling MD Transcribed by Milly Castellon Authenticated and [facility]
--- NOTE | 2025-09-06 08:35 | CT_ITS ---
FINAL REPORT TECHNIQUE: Thin section axial images were obtained from skull base to vertex without contrast. Coronal reconstruction images were obtained from the axial data. Exam was performed using dose reduction techniques such as automated exposure control, adjustment of the mA and kV according to patient size, and use of iterative reconstruction technique. CLINICAL HISTORY: TIA w/u COMPARISON: none FINDINGS: There is no mass effect or midline shift. There is no hydrocephalus. There is no intracranial hemorrhage. The posterior fossa is without acute abnormality. The basilar cisterns are preserved. The soft tissues are without acute abnormality. No acute osseous abnormality is identified. IMPRESSION: No acute intracranial abnormality. Reviewed, Interpreted and Dictated by Judy Sterling MD Transcribed by Milly Castellon Authenticated and . [facility]
--- NOTE | 2025-09-06 08:35 | CT_ITS ---
FINAL REPORT TECHNIQUE: Thin section axial images were obtained from the aortic arch to the skull base after intravenous contrast injection per CTA protocol. Multiplanar reconstruction images were obtained. Exam was performed using dose reduction techniques and the ALARA principle. CLINICAL HISTORY: TIA w/u COMPARISON: None FINDINGS: CTA NECK: Aortic arch: There is a normal three-vessel configuration to the aortic arch. There is no significant stenosis of the great vessels at their origins. Right carotid artery: The right common carotid artery is patent without stenosis. Calcified plaque is noted at the carotid bulb. This limits evaluaton at the bulb. There is opacification of the more distal vessel. Short segment of severe stenosis cannot be excluded. Remaining right ICA is patent to the skull base. Left carotid artery: The left common carotid artery is patent without stenosis. Calcified plaque at the carotid bulb with less than 50% stenosis. Vertebral arteries: The vertebral arteries are patent. No significant stenosis or occlusion. Other soft tissues: No acute abnormality. IMPRESSION: Dense calcification of the right carotid bulb limits evaluation and accurate measurement of stenosis. The more distal vessel is widely patent. A short segment stenosis cannot be excluded. Less than 50% left carotid stenosis. Patent vertebral arteries. Reviewed, Interpreted and Dictated by Judy Sterling MD Transcribed by Milly Castellon Authenticated and [facility]
[2025-09-06 08:44] LABS: Hematocrit 45.9 % (42.0-52.0); Hemoglobin 15.7 g/dL (14.1-18.0); Immature Granulocytes % 0.3 %; Mean Corpuscular HGB Conc 34.2 g/dL (31.8-35.4); Mean Corpuscular Hemoglobin 31.2 pg (27.0-31.2); Mean Corpuscular Volume 91.3 fl (80-94); Nucleated Red Blood Cells % 0 %; Platelet Count 215 K/mm3 (142-424); Red Blood Count 5.03 M/mm3 (4.60-6.20); Red Cell Distribution Width-SD 45.4 fL; White Blood Count 6.8 K/mm3 (4.8-10.8)
[2025-09-06 08:51] LABS: Alanine Aminotransferase 33 U/L (12-78); Albumin Level 4.5 g/dl (3.5-5.0); Albumin/Globulin Ratio 1.5 (1.1-1.8); Alkaline Phosphatase 71 U/L (38-126); Anion Gap 10.9 mEq/L (5-15); Aspartate Amino Transferase 24 U/L (17-59); Bilirubin,Total 0.6 mg/dl (0.2-1.3); Blood Urea Nitrogen 22 mg/dl (9-20); Calcium 10.2 mg/dl (8.4-10.2); Carbon Dioxide 26 mmol/L (22.0-30.0); Chloride 99 mmol/L (98-107); Creatinine Clearance Estimated 95 mL/min (50-200); Creatinine,Serum 1.00 mg/dl (0.66-1.25); Estimated Glomerular Filt Rate 76 ml/min (>60); GFR (African American) 93 ML/MIN (>60); Globulin 3.1 g/dL (1.3-3.2); Glucose 144 mg/dl (74-100); INR 0.98 (0.9-1.1); Potassium 3.9 mmoL/L (3.5-5.1); Prothrombin Time 10.9 seconds (10.1-12.5); Sodium 132 mmol/L (136-145); Total Protein,Serum 7.6 g/dl (6.3-8.2)
--- NOTE | 2025-09-06 08:58 | ED_ITS ---
Discharge Plan Disposition Patient Disposition: Home, Self-Care Condition: Good Prescriptions Prescriptions: No Action sildenafil [Viagra] 100 mg tablet 100 mg PO DAILY PRN (Reason: sexual activity) Qty: 10 10RF Rx Instructions: administer 30 minutes to 4 hours before activity metoprolol succinate 100 mg tablet extended release 24 hr See Rx Instructions .ROUTE .COMPLEX Qty: 90 3RF Dose Instruction: TAKE 1 TABLET BY MOUTH DAILY. Rx Instructions: TAKE 1 TABLET BY MOUTH DAILY. aspirin 81 mg tablet,delayed release (DR/EC) See Rx Instructions .ROUTE .COMPLEX Qty: 100 10RF Dose Instruction: TAKE 1 TABLET BY MOUTH DAILY. Rx Instructions: TAKE 1 TABLET BY MOUTH DAILY. (DME) lancets 30 gauge misc See Rx Instructions .MEDSUPPLY Qty: 100 3RF Rx Instructions: Twice daily (DME) Blood Glucose Test Strip See Rx Instructions .ROUTE .MEDSUPPLY Qty: 100 2RF Rx Instructions: Twice daily (DME) blood-glucose meter Misc See Rx Instructions .ROUTE .MEDSUPPLY Qty: 1 0RF Rx Instructions: Twice daily clonidine HCl 0.3 mg tablet 0.3 mg PO DAILY nifedipine 90 mg tablet extended release 90 mg PO DAILY Qty: 30 2RF chlorthalidone 25 mg tablet 25 mg PO DAILY Qty: 30 2RF valsartan 320 mg tablet 320 mg PO DAILY Qty: 30 2RF pantoprazole 40 mg tablet,delayed release (DR/EC) 40 mg PO BID Qty: 180 3RF potassium chloride 20 mEq tablet extended release 20 meq PO DAILY Qty: 90 3RF metformin 1,000 mg tablet 1,000 mg PO BID Qty: 180 3RF Referrals Follow up/Referrals: Katherine Ramos MD [Staff Physician, Neurology] - See instructions Elias Ruelas MD [Primary Care Provider, Family Practice] - See instructions Activity Restrictions/Add. Instructions Additional Instructions/Restrictions: Please call the neurologist to schedule an appointment. Return to the ER for any acute or worsening symptoms. Take the statin as previously prescribed until you follow-up with your primary care provider. Clinical Impressions Clinical Impression: Weakness Print Language Print Language: Fijian Discharge ED Provider: Nilsa Kauffman Adult HPI General Chief complaint: Neuro Symptoms/Deficit Stated complaint: sluring words, unsteady Time Seen by Provider: 09/06/25 08:37 Mode of Arrival: Wheelchair Source of Information: Patient Description of Symptoms (Recalled from ER Triage Doc. by RN): patient states around 800 pm lastnight he began feeling unsteady weak and having a hard time getting his words out. he is not on any blood thinners History of Present Illness HPI narrative: Patient is a 60-year-old gentleman with a past medical history of hypertension, on daily aspirin and diabetes who presented to the emergency department with feeling unsteady on his feet since last night. Patient states that this for started around 8 PM last night. Patient states he felt this way in the shower today as well. Patient states that he just felt unsteady but was not feeling lightheaded or having any dizziness. Patient denied any other neurologic symptoms such as headache, vision changes numbness or weakness. Patient states that he did not take his blood pressure medications this morning as he was coming here to the emergency department to get us CT scan of his chest. While getting his CT scan of his chest, he reported his symptoms and therefore was sent here to the emergency department. states that his speech sounds slightly abnormal but able to fully understand his words. Patient is not on any blood thinners except for aspirin. Patient has not had any recent trauma or falls. Related Data Home Medications ?Medication ?Instructions ?Recorded ?Confirmed clonidine HCl 0.3 mg tablet 0.3 mg PO DAILY 08/14/25 1 10/31/24 Previous Rx's ?Medication ?Instructions ?Recorded sildenafil 100 mg tablet (Viagra) 100 mg PO DAILY PRN sexual 03/30/24 activity #10 tabs pantoprazole 40 mg tablet,delayed 40 mg PO BID #180 ta bs 11/17/24 release potassium chloride 20 mEq 20 meq PO DAILY #90 tabs 04/05 tablet,extended release aspirin 81 mg tablet,delayed See Rx Instructions .Rout e 12/07/24 release .COMPLEX #100 tabs metoprolol succinate 100 mg See Rx Instructions .Route 12/07/24 tablet,extended release 24 hr .COMPLEX #90 tabs blood sugar diagnostic (Blood #100 ea 07/13/25 Glucose Test strips) blood-glucose meter #1 ea 07/13/25 lancets 30 gauge #100 ea 07/13/25 metformin 1,000 mg tablet 1,000 mg PO BID #180 tabs chlorthalidone 25 mg tablet 25 mg PO DAILY #30 tabs nifedipine 90 mg tablet,extended 90 mg PO DAILY #30 ta bs 08/14/25 release valsartan 320 mg tablet 320 mg PO DAILY #30 tabs 01/03 Allergies Allergy/AdvReac Type Severity Reaction Status Date / Time No Known Allergies Allergy Verified 08/31/25 14:16 [facility] Disclaimer: The information contained in this section may have been updated after the patient was seen, as this information can be updated by other users. Medical History Family history of CABG Leg cramps Claudication Dizziness Erectile dysfunction Neuropathy Hypertension Pleuritic chest pain Hyperlipidemia Diabetes Surgical History History of appendectomy Family History Other Family history of myocardial infarction Social History Smoking Status: Current every day smoker tobacco type: cigarettes packs per day: 1 alcohol intake: former substance use type: denies use current occupational status: employed Travel in the last 8 weeks?: None Have you lived/traveled outside [place] in past 30 days?: No Contact w/someone who lives/traveled outside [place] past 30 days?: No Exposure to someone with infectious disease in past 14 days?: No Do you have a fever (greater than 100.4 F or 38 C)?: No Have you tested positive for COVID-19?: No Exposed to someone with COVID-19 in past 14 days?: No Do you have a sore throat?: No Do you have a cough?: No Do you have any weakness?: No Do you have any diarrhea?: No Are you experiencing any unusual bleeding?: No Do you have any muscle aches/pain?: No Do you have any abdominal pain?: No Are you experiencing loss of taste or smell?: No Other Medical History Have you received the Flu Vaccine for this season: No Have you received the Pneumonia Vaccine: No ROS Obtained: Yes All systems reviewed & no additional complaints except as documented and Yes Systems reviewed as appropriate & no additional complaints except as documented Physical Exam General General appearance: alert and in no apparent distress Head Head exam: atraumatic, normocephalic and normal inspection Eye Eye exam: Present normal appearance, PERRL and EOMI; Absent scleral icterus ENT ENT exam: Present normal exam and normal external ear exam Neck Neck exam: Present normal inspection and full ROM Chest Chest inspection: Present normal inspection and symmetric chest wall rise Respiratory Respiratory exam: Present normal lung sounds bilaterally; Absent respiratory distress or wheezes Cardiovascular Cardiovascular exam: Present regular rate, normal rhythm and normal heart sounds Abdominal Exam Abdominal exam: Present soft and distention; Absent tenderness, guarding or rebound Extremities Exam Extremities exam: Present normal inspection and full ROM Back Exam Back exam: Present normal inspection and full ROM Neurological Exam Neurological exam: Present alert, oriented X3, CN II-XII intact, normal gait, reflexes normal and other (Normal [id number], normal [id number]); Absent motor sensory deficit Psychiatric Psychiatric exam: Present normal affect and normal mood Skin Skin exam: Present warm and dry Medical Decision Making Medical Records Medical records reviewed: Yes I reviewed the patient's medical records. Screening: Per USPSTF and CDC recommendations, given the prevalence of disease in our region, it is our hospital?s policy to screen for HIV and viral Hepatitis for all patients aged 18 and over and those with ongoing risk factors. Ian Inquiry Pt receiving controlled substance: No Vital Signs: 09/06/25 08:22 09/06/25 09:00 09/06/25 09:59 Temperature 98.1 F Temperature Source Oral Pulse Rate 55 L 54 L Pulse Rate [Right Radial] 57 L Respiratory Rate 15 18 18 Blood Pressure 147/76 H 124/87 Blood Pressure [Right Arm] 177/98 H Blood Pressure Mean [Right Arm] 124 Blood Pressure Source Blood Pressure Source [Right Arm] Automatic Cuff Blood Pressure Position Blood Pressure Position [Right Arm] Sitting 02 Sat by Pulse Oximetry 100 97 98 Oxygen Delivery Method Room Air Room Air Room Air 09/06/25 10:30 09/06/25 11:00 09/06/25 11:44 Temperature 97.8 F Temperature Source Oral Pulse Rate 55 L 50 L 50 L Pulse Rate [Right Radial] Respiratory Rate 18 16 16 Blood Pressure 124/67 131/77 131/77 Blood Pressure [Right Arm] Blood Pressure Mean [Right Arm] Blood Pressure Source Automatic Cuff Blood Pressure Source [Right Arm] Blood Pressure Position Sitting Blood Pressure Position [Right Arm] 02 Sat by Pulse Oximetry 95 96 Oxygen Delivery Method Room Air Room Air Room Air Lab Data Lab results reviewed: Yes I reviewed the patient's lab results. Lab Results 09/06/25 08:20: WBC 6.8, RBC 5.03, Hgb 15.7, Hct 45.9, MCV 91.3, MCH 31.2, MCHC 34.2, RDW 13.5, Plt Count 215, MPV 9.5, Neut % (Auto) 48.5, Lymph % (Auto) 40.4, [place] % (Auto) 6.4, Eos % (Auto) 3.7, Baso % (Auto) 0.7, Neut # (Auto) 3.3, Lymph # (Auto) 2.7, [place] # (Auto) 0.4, Eos # (Auto) 0.3, Baso # (Auto) 0.1, PT 10.9, INR 0.98, Sodium 132 L, Potassium 3.9, Chloride 99, Carbon Dioxide 26, Anion Gap 10.9, BUN 22 H, Creatinine 1.00, Estimated Creat Clear 95, Estimated GFR 76, Est GFR ( Amer) 93, Glucose 144 H, Calcium 10.2, Total Bilirubin 0.6, AST 24, ALT 33, Alkaline Phosphatase 71, Troponin I < 0.01, NT-Pro-B Natriuret Pep 147 H , Total Protein 7.6, Albumin 4.5, Globulin 3.1, Albumin/Globulin Ratio 1.5 09/06/25 08:20 09/06/25 08:20 Orders (Tests/Meds): ED MEDICATIONS Discontinued Medications Generic Name Dose Route Start Last Admin Trade Name Freq PRN Reason Stop Dose Admin Iopamidol 160 ml 09/06/25 09:23 09/06/25 09:29 Iopamidol-370 (76%);100ml Bottle IV 09/06/25 09:24 160 ml ONCE ONE Administration Sodium Chloride 10 ml 09/06/25 09:23 09/06/25 09:29 Sodium Chloride 0.9% 10ml Syr (Rad Only) IV 10/06/25 09:22 10 ml NEEDED PRN Administration Maintain IV Site Sodium Chloride 100 ml 09/06/25 09:23 09/06/25 09:28 0.9 % Sodium Chloride 50 Ml Vial IV 09/06/25 09:24 100 ml ONCE ONE Administration ORDERS Category Date Time Status CT angio chest PE protocol Stat Cat Scan 09/06/25 08:[address] angio head Stat Cat Scan 09/06/25 08:[address] angio neck Stat Cat Scan 09/06/25 08:[address] head/brain wo con Stat Cat Scan 09/06/25 08:35 Completed BNP [NT Pro Brain Natriuretic Pep.] Stat Lab 09/06/25 08:20 Completed CBC w/Auto Diff [Complete Blood Count Auto Diff] Stat Lab 09/06/25 08:20 Completed CMP [Comprehensive Metabolic Panel] Stat Lab 09/06/25 08:20 Completed Prothrombin Time INR Stat Lab 09/06/25 08:20 Completed Trop I [Troponin I] Stat Lab 09/06/25 08:20 Completed Medical Decision Narrative: Patient is a 60-year-old gentleman with a history of hypertension, diabetes on aspirin who presented to the emergency department with feeling unsteady on his feet. On arrival, patient was hemodynamically stable with unremarkable vital signs. Differential includes but not limited to: Intracranial pathology including hemorrhage versus ischemia, electrolyte abnormalities, dehydration, vertigo, TIA, amongst others. Labs were obtained, cardiac workup and CT scans of the head and CT chest. Patient's labs were reviewed and interpreted by myself: CBC showed no leukocytosis, hemoglobin was stable. INR was normal. CMP was unremarkable. Initial troponin less than 0.01. EKG was reviewed and interpreted by myself and showed normal sinus rhythm without acute ST or T wave changes concerning for ischemia CT head, CTA head and neck and CT PE showed no acute pathology. Here in the emergency department, patient stated that he no longer was feeling off balance on his feet. Patient had an NIH of 0 on arrival. Patient had an otherwise nonfocal exam. Given patient's otherwise unremarkable workup in the emergency department, I felt the patient was appropriate for outpatient management and patient wished to go home. Patient was sent with outpatient neurology follow-up and recommended to continue taking his hypertensive medications, his statin is previously prescribed as well as his aspirin. Patient was given strict return precautions for any return of neurologic symptoms patient was otherwise discharged home in stable condition, return precautions were discussed. Critical Care Critical Care Time Critical Care Time: No
[2025-09-06 09:00] VITALS: BP 147/76; PULSE 55; RESP 18; O2SAT 97
[2025-09-06 09:02] LABS: NT Pro Brain Natriuretic Pep. 147 pg/mL (0-125)
[2025-09-06 09:10] LABS: Troponin I < 0.01 ng/ml (0.00-0.034)
[2025-09-06] MEDS: 0.9 % SODIUM CHLORIDE 50 ML VIAL 100 ML IV (09:28)
[2025-09-06] MEDS: SODIUM CHLORIDE 0.9% 10ML SYR (RAD ONLY) 10 ML IV (09:29)
[2025-09-06] MEDS: IOPAMIDOL-370 (76%);100ML BOTTLE 160 ML IV (09:29)
[2025-09-06 09:59] VITALS: BP 124/87; PULSE 54; RESP 18; O2SAT 98
[2025-09-06 10:30] VITALS: BP 124/67; PULSE 55; RESP 18; O2SAT 95
[2025-09-06 11:00] VITALS: BP 131/77; PULSE 50; RESP 16; O2SAT 96
[2025-09-06 11:44] VITALS: BP 131/77; PULSE 50; RESP 16; TEMP 36.6; O2SAT 97
== END 2025-09-06 11:45 | disposition home or self-care (01) ==
PROVIDERS: Emergency Provider Student in an Organized Health Care Education/Training Program; PCP Family Medicine
DX: E87.1 Hypo-osmolality and hyponatremia (principal); R53.1 Weakness; F17.210 Nicotine dependence, cigarettes, uncomplicated; I10 Essential (primary) hypertension; E78.5 Hyperlipidemia, unspecified; E11.9 Type 2 diabetes mellitus without complications; Z79.84 Long term (current) use of oral hypoglycemic drugs
CPT/HCPCS: 70450; 70496; 70498; 71275; 80053; 83880; 84484; 85025; 85610; 93005; 99285; Q9967